=== PATIENT | male | born 1985 | race Caucasian/White ===

== ENCOUNTER 2018-02-09 23:17 | Emergency (ER) | payer BC, MEDICAID ==
--- NOTE | 2018-02-10 00:12 | EDM.PDOC ---
ED HPI GENERAL MEDICAL PROBLEM - General Chief Complaint: ENT Problem Stated Complaint: R EAR PAIN Time Seen by Provider: 02/09/18 23:58 Source of Information: Reports: Patient History Limitations: Reports: No Limitations - History of Present Illness INITIAL COMMENTS - FREE TEXT/NARRATIVE: This gentleman comes in because of pain in his right ear that just started today. He's never had problems with ear infections before he hasn't been swimming recently. Hearing is normal Right Ear Pain Score (Numeric/FACES): 7 - Related Data Allergies Allergy/AdvReac Type Severity Reaction Status Date / Time No Known Allergies Allergy Verified 02/09/18 23:35 Home Meds: Home Meds NK [No Known Home Meds] 02/09/18 [History] Past Medical History - Past Health History Medical/Surgical History: Denies Medical/Surgical History Social & Family History - Tobacco Use Smoking Status *Q: Current Some Day Smoker Years of Tobacco use: 3 Packs/Tins Daily: 0.5 - Caffeine Use Caffeine Use: Reports: Coffee, Soda, Tea - Recreational Drug Use Recreational Drug Use: No ED ROS ENT - Review of Systems Review Of Systems: ROS reveals no pertinent complaints other than HPI. ED EXAM, ENT - Physical Exam Exam: See Below Exam Limited By: No Limitations General Appearance: Alert, WD/WN, No Apparent Distress Ears: TM Erythema, Other (There is some erythema to the ear canal suggesting otitis externa but I don't see any kind of discharge. Tympanic membrane's showing a yellow color with injected vessels. An insufflator was not available.) Nose: Normal Inspection Mouth/Throat: Normal Inspection Course - Vital Signs Last Recorded V/S: Last Vital Signs Temp 36.0 C 02/09/18 23:27 Pulse 67 02/09/18 23:27 Resp 18 02/09/18 23:27 BP 133/91 H 02/09/18 23:27 Pulse Ox 96 02/09/18 23:27 Departure - Departure Time of Disposition: 00:12 Disposition: Home, Self-Care 01 Condition: Fair Clinical Impression: Otitis media - Discharge Information Instructions: Otitis Media, Adult, [id number] Referrals: PCP,None [Primary Care Provider] - Forms: ED Department Discharge Additional Instructions: Take the antibiotic as directed amoxicillin 500 mg 3 times a day for 10 days. Also use the eardrops Cortisporin otic suspension one or 2 drops in the ear 3 times a day for a week. If no better in 2 or 3 days and follow-up with your
== END 2018-02-10 00:22 | disposition home or self-care (01) ==
LOC: JP.ED 23:17
DX: H66.91 Otitis media, unspecified, right ear (principal)
CPT/HCPCS: 99283

== ENCOUNTER 2019-07-13 20:44 | Emergency (ER) | payer BC, MEDICAID ==
[2019-07-13] MEDS ORDERED: Acetaminophen 500 MG Tab PO ONE (21:05)
--- NOTE | 2019-07-13 21:14 | EDM.PDOC ---
ED HPI GENERAL MEDICAL PROBLEM - General Chief Complaint: ENT Problem Stated Complaint: FEVER, COUGH, CHEST PAIN Time Seen by Provider: 07/13/19 21:00 Source of Information: Reports: Patient, Old Records, RN History Limitations: Reports: No Limitations - History of Present Illness INITIAL COMMENTS - FREE TEXT/NARRATIVE: 34 yo male here with fever, body aches, and congestion. Was here with his son last night for the son's ear infection and mentioned that he(Dad) had a cold. Fever began abruptly late this afternoon. No tx prior to arrival. Left work early due to his illness. Onset Date: 07/12/19 Duration: Day(s): (1+), Getting Worse Location: Reports: Generalized Quality: Reports: Ache (body) Severity: Moderate Improves with: Reports: None Worsens with: Reports: Other (? time) Context: Reports: Sick Contact Associated Symptoms: Reports: Cough, Fever/Chills, Other (congestion). Denies: Nausea/Vomiting, Rash, Shortness of Breath Treatments CUTTER DOWN: Reports: Other (see below) (none) Bilateral Generalized Pain Score (Numeric/FACES): 4 - Related Data Allergies Allergy/AdvReac Type Severity Reaction Status Date / Time No Known Allergies Allergy Verified 02/09/18 23:35 Past Medical History - Past Health History Medical/Surgical History: Denies Medical/Surgical History Musculoskeletal History: Reports: Fracture Other Musculoskeletal History: skull fracture Social & Family History - Family History Family Medical History: Noncontributory - Tobacco Use Smoking Status *Q: Light Tobacco Smoker Years of Tobacco use: 5 Packs/Tins Daily: 0.5 - Caffeine Use Caffeine Use: Reports: Energy Drinks, Soda, Tea Caffeine Use Comment: daily use - Alcohol Use Days Per Week of Alcohol Use: 2 Number of Drinks Per Day: 3 Total Drinks Per Week: 6 - Recreational Drug Use Recreational Drug Use: No ED ROS GENERAL - Review of Systems Review Of Systems: See Below Constitutional: Reports: Fever, Chills, Malaise HEENT: Reports: Rhinitis. Denies: Ear Discharge, Ear Pain, Throat Pain, Throat Swelling Respiratory: Reports: Cough. Denies: Shortness of Breath, Wheezing, Pleuritic Chest Pain, Sputum, Hemoptysis Cardiovascular: Reports: No Symptoms GI/Abdominal: Reports: No Symptoms : Reports: No Symptoms Musculoskeletal: Reports: No Symptoms Skin: Reports: No Symptoms Neurological: Reports: No Symptoms ED EXAM, GENERAL - Physical Exam Exam: See Below Exam Limited By: No Limitations General Appearance: Alert, WD/WN, No Apparent Distress Eye Exam: Bilateral Eye: Normal Inspection, PERRL Ears: Normal External Exam, Normal Canal, Hearing Grossly Normal, Normal TMs Ear Exam: Bilateral Ear: Auricle Normal, Canal Normal, TM normal Nose: Normal Inspection, Normal Mucosa, No Blood Throat/Mouth: Normal Inspection, Normal Lips, Normal Oropharynx, Normal Voice, No Airway Compromise Head: Atraumatic, Normocephalic Neck: Normal Inspection Respiratory/Chest: No Respiratory Distress, Lungs Clear, Normal Breath Sounds, No Accessory Muscle Use Cardiovascular: Regular Rate, Rhythm, No Edema, Tachycardia Back Exam: Normal Inspection. No: CVA Tenderness (R), CVA Tenderness (L) Extremities: Normal Inspection Neurological: Alert, Oriented, CN II-XII Intact, Normal Cognition, No Motor/ Sensory Deficits Psychiatric: Normal Affect, Normal Mood Skin Exam: Warm, Dry, Intact, Normal Color, No Rash Course - Vital Signs Last Recorded V/S: Last Vital Signs Temp 37.7 C 07/13/19 20:58 Pulse 127 H 07/13/19 20:58 Resp 16 07/13/19 20:58 BP 138/94 H 07/13/19 20:58 Pulse Ox 97 07/13/19 20:58 - Orders/Labs/Meds Labs: Laboratory Tests 07/13/19 Range/Units 21:05 WBC 17.7 H (4.5-11.0) K/uL RBC 4.65 (4.30-5.90) M/uL Hgb 14.6 (12.0-15.0) g/dL Hct 44.0 (40.0-54.0) % MCV 95 (80-98) fL MCH 31 (27-31) pg MCHC 33 (32-36) % Plt Count 276 (150-400) K/uL Meds: Medications Discontinued Medications Generic Name Dose Route Start Last Admin Trade Name Freq PRN Reason Stop Dose Admin Acetaminophen 1,000 mg 07/13/19 21:05 07/13/19 21:12 Tylenol Extra Strength PO 07/13/19 21:06 1,000 mg ONETIME ONE Administration Departure - Departure Time of Disposition: 21:50 Disposition: Home, Self-Care 01 Condition: Fair Clinical Impression: Influenza B - Discharge Information *PRESCRIPTION DRUG MONITORING PROGRAM REVIEWED*: No *COPY OF PRESCRIPTION DRUG MONITORING REPORT IN PATIENT JOJO: No Instructions: Influenza, Adult Referrals: PCP,None [Primary Care Provider] - Forms: ED Department Discharge Additional Instructions: Take Tamiflu every 12 hrs until gone. Take acetaminophen 1000 mg every 6 hrs for fever. Drink ample fluids. Get rest and wash your hands often and isolate yourself to reduce spread. Recheck in the clinic if worse.
[2019-07-13] MEDS ORDERED: Oseltamivir 75 MG Cap PO ONE (21:47)
== END 2019-07-13 22:00 | disposition home or self-care (01) ==
LOC: JP.ED 20:44
DX: J10.1 Influenza due to other identified influenza virus with other respiratory manifestations (principal); F17.210 Nicotine dependence, cigarettes, uncomplicated
CPT/HCPCS: 36415; 85027; 87804; 99283; A9270